=== PATIENT | female | born 1930 | race Caucasian/White ===

== ENCOUNTER 2017-03-12 10:55 | Inpatient (IN) | payer MEDICARE, OTHER ==
[~2017-03-12] VITALS: Ht 157.5 cm; Wt 47.6 kg
[2017-03-12] MEDS ORDERED: Morphine Sulfate 2mg/ml Inj IVP ONE (11:15)
[2017-03-12 11:42] VITALS: BP 146/97
[2017-03-12 11:47] LABS: MEAN CORPUSCULAR HEMOGLOBIN 28.8 PG (27.0-31.0); MEAN CORPUSCULAR HGB CONC 31.8 G/DL (32.0-36.0); MEAN CORPUSCULAR VOLUME 91 FL (80-99); MEAN PLATELET VOLUME 8.7 FL (6.5-10.1); PLATELET COUNT 138 K/UL (150-450); RED BLOOD COUNT 4.98 M/UL (4.20-5.40); RED CELL DISTRIBUTION WIDTH 12.8 % (11.6-14.8); WHITE BLOOD COUNT 9.4 K/UL (4.8-10.8)
[2017-03-12 12:02] LABS: ALANINE AMINOTRANSFERASE 10 U/L (3-33); ALBUMIN/GLOBULIN RATIO 1.3 (1.0-2.7); ANION GAP 17 (5-15); ASPARTATE AMINO TRANSFERASE 20 U/L (5-40); CALCIUM 9.8 mg/dL (8.6-10.2); CARBON DIOXIDE 24 mEQ/L (20-30); CHLORIDE 101 mEQ/L (98-107); CREATININE 0.7 mg/dL (0.5-0.9); HEMOLYSIS 7; SODIUM 142 mEQ/L (135-145); TOTAL PROTEIN 6.8 g/dL (6.6-8.7)
[2017-03-12 13:09] LABS: BAND NEUTROPHILS % (MANUAL) 0 % (0-8); BASOPHILS % (MANUAL) 0 % (0-2); EOSINOPHILS % (MANUAL) 0 % (0-3); LYMPHOCYTES % (MANUAL) 11 % (20-45); NEUTROPHILS % (MANUAL) 85 % (45-75); PLATELET ESTIMATE DECREASED; PLATELET MORPHOLOGY NORMAL; TOTAL CELLS COUNTED 100
[2017-03-12 13:12] LABS: PROTHROMBIN TIME 10.7 SEC (9.30-11.50)
--- NOTE | 2017-03-12 14:30 | Emergency Room Report ---
History of Present Illness General Chief Complaint: Multiple Trauma/Fall Source: EMS Present Illness HPI 87-year-old female presents to ED complaining of right hip pain status post fall. Daughter at bedside states patient a mechanical trip and fall in grocery store today. Denies hitting her head or LOC. Per EMS patient presents with shortening of the right leg with external rotation. Pain is a 5/10, sharp, nonradiating. Patient is unable to barely. No other aggravating or relieving factors. Denies any other associated symptoms Allergies: Coded Allergies: LORATADINE (Verified Allergy, Unknown, 03/12/17) Uncoded Allergies: SHELLFISH (Allergy, Unknown, 03/12/17) Patient History Past Medical History: none Past Surgical History: none Pertinent Family History: none Social History: Denies: alcohol use, drug use, smoking Now: No Immunizations: UTD Reviewed Nursing Documentation: PMH: Agreed, PSxH: Agreed Nursing Documentation-PMH Past Medical History: No History, Except For Review of Systems All Other Systems: negative except mentioned in HPI Physical Exam Vital Signs Date Time Temp Pulse Resp B/P Pulse Ox O2 Delivery O2 Flow Rate FiO2 03/12/17 10:50 97.9 100 14 145/83 96 Room Air Sp02 EP Interpretation: reviewed, normal General Appearance: alert, GCS 15, non-toxic, mild distress, thin Head: normocephalic, atraumatic Eyes: bilateral eye PERRL, bilateral eye normal inspection ENT: hearing grossly normal, normal pharynx, no angioedema, normal voice Neck: full range of motion, supple/symm/no masses Respiratory: chest non-tender, lungs clear, normal breath sounds, speaking full sentences Cardiovascular #1: regular rate, rhythm, no edema Cardiovascular #2: 2+ carotid (R), 2+ carotid (L), 2+ radial (R), 2+ radial (L) , 2+ dorsalis pedis (R), 2+ dorsalis pedis (L) Gastrointestinal: normal bowel sounds, non tender, soft, non-distended, no guarding, no rebound Rectal: deferred Genitourinary: normal inspection, no CVA tenderness Musculoskeletal: back normal, gait/station normal, normal range of motion, other - Shortening/external rotation of right leg Neurologic: alert, oriented x3, responsive, motor strength/tone normal, sensory intact, speech normal Psychiatric: judgement/insight normal, memory normal, mood/affect normal, no suicidal/homicidal ideation Reflexes: 3+ bicep (R), 3+ bicep (L), 3+ tricep (R), 3+ tricep (L), 3+ knee (R) , 3+ knee (L) Skin: normal color, no rash, warm/dry, well hydrated Lymphatic: no adenopathy Medical Decision Making Diagnostic Impression: Primary Impression: Right femoral fracture Qualified Codes: S72.001A - Fracture of unspecified part of neck of right femur, initial encounter for closed fracture ER Course Hospital Course 87-year-old female presents to ED with R hip pain and shortening s/p fall Differential diagnoses include: fracture, dislocation, contusion Clinical course Patient placed on stretcher. After initial history and physical I ordered labs , pain medication and imaging studies Labs reviewed- no leukocytosis noted, electrolytes okay, hemoglobin/hematocrit okay CT pelvis shows right femoral neck fracture, also noted on femur x-ray Ankle x-ray unremarkable Case discussed with Dr. Funk who agreed to consult on this case. Case discussed with Dr. Sadlivar who agreed to accept the patient to his service for further care and support i. I feel this is a highly complex case requiring extensive working including EKG/Rhythm strip, Xray/CT/US, Blood/urine lab work, repeat exams while in ED, and administration of strong opiates/narcotics for pain control, admission to hospital or close patient follow up. Diagnosis - R femoral fracture Admitted to floor in serious condition Labs Test 03/12/17 11:36 03/12/17 12:00 White Blood Count 9.4 K/UL (4.8-10.8) Red Blood Count 4.98 M/UL (4.20-5.40) Hemoglobin 14.4 G/DL (12.0-16.0) Hematocrit 45.2 % (37.0-47.0) Mean Corpuscular Volume 91 FL (80-99) Mean Corpuscular Hemoglobin 28.8 PG (27.0-31.0) Mean Corpuscular Hemoglobin Concent 31.8 G/DL (32.0-36.0) Red Cell Distribution Width 12.8 % (11.6-14.8) Platelet Count 138 K/UL (150-450) Mean Platelet Volume 8.7 FL (6.5-10.1) Neutrophils (%) (Auto) % (45.0-75.0) Lymphocytes (%) (Auto) % (20.0-45.0) Monocytes (%) (Auto) % (1.0-10.0) Eosinophils (%) (Auto) % (0.0-3.0) Basophils (%) (Auto) % (0.0-2.0) Differential Total Cells Counted 100 Neutrophils % (Manual) 85 % (45-75) Lymphocytes % (Manual) 11 % (20-45) Monocytes % (Manual) 4 % (1-10) Eosinophils % (Manual) 0 % (0-3) Basophils % (Manual) 0 % (0-2) Band Neutrophils 0 % (0-8) Platelet Estimate Decreased Platelet Morphology Normal Red Blood Cell Morphology Normal Sodium Level 142 mEQ/L (135-145) Potassium Level 4.0 mEQ/L (3.4-4.9) Chloride Level 101 mEQ/L (98-107) Carbon Dioxide Level 24 mEQ/L (20-30) Anion Gap 17 (5-15) Blood Urea Nitrogen 33 mg/dL (7-23) Creatinine 0.7 mg/dL (0.5-0.9) Estimat Glomerular Filtration Rate mL/min (>60) Glucose Level 130 mg/dL (74-106) Calcium Level 9.8 mg/dL (8.6-10.2) Total Bilirubin 0.5 mg/dL (0.0-1.2) Aspartate Amino Transf (AST/SGOT) 20 U/L (5-40) Alanine Aminotransferase (ALT/SGPT) 10 U/L (3-33) Alkaline Phosphatase 113 U/L (35-104) Total Protein 6.8 g/dL (6.6-8.7) Albumin 3.9 g/dL (3.5-5.2) Globulin 2.9 g/dL Albumin/Globulin Ratio 1.3 (1.0-2.7) Prothrombin Time 10.7 SEC (9.30-11.50) Prothromb Time International Ratio 1.0 (0.9-1.1) Activated Partial Thromboplast Time 22 SEC (23-33) Other X-Ray Diagnostic Results Other X-Ray Diagnostic Results #1: X-Ray ordered: R femur # of Views/Limited Vs Complete: 3 View Indication: Pain EP Interpretation: Yes Interpretation: no dislocation, no soft tissue swelling, other - R femur neck fx Impression: Other - femur neck fx Interpreting ER Provider: Sumanth Malone MD Other X-Ray Diagnostic Results #2: X-Ray ordered: R ankle # of Views/Limited Vs Complete: 3 View Indication: Pain EP Interpretation: Yes Interpretation: no dislocation, no soft tissue swelling, no fractures Impression: No acute disease Interpreting ER Provider: Sumanth Malone mD CT/MRI/US Diagnostic Results CT/MRI/US Diagnostic Results : Imaging Test Ordered: CT PElvis Impression R femur neck fx Last Vital Signs Date Time Temp Pulse Resp B/P Pulse Ox O2 Delivery O2 Flow Rate FiO2 03/12/17 11:42 97.9 82 19 146/97 100 Room Air Status: improved Disposition: ADMITTED INPATIENT Condition: Serious Referrals: NOT CHOSEN IVY/,REFERRING (PCP) SUMANTH MALONE M.D. Mar 12, 2017 14:30
[2017-03-12 14:39] VITALS: BP 141/92
[2017-03-12] MEDS ORDERED: ASPIR 8181 MG ORAL (15:14)
[2017-03-12 15:41] VITALS: BP 155/75
--- NOTE | 2017-03-12 15:44 | Consultation ---
Consult Note Assessment/Plan # [id number] RAGHAVENDRA RUDOLPH Mar 12, 2017 15:44
[2017-03-12] MEDS ORDERED: Norco 5mg/325mg tab ORAL PRN (17:15)
[2017-03-12 17:24] VITALS: BP 151/87
--- NOTE | 2017-03-12 18:45 | Consultation ---
DATE OF CONSULTATION: 03/12/2017 RENAL CONSULTATION REFERRING PHYSICIAN: Karla Saldivar M.D. HISTORY OF PRESENT ILLNESS: The patient is an 87-year-old female, who sustained a fall en route and complaining of right hip pain. The patient is alert and oriented and gave full history. She states that her allergies are to loratadine and shellfish. She denies having any previous medical conditions. She states that she has no trust to doctors and medical roper and she only takes a baby aspirin a day and has not seen any physician for quite some time. PAST HISTORY: Negative. PAST SURGICAL HISTORY: Negative. PHYSICAL EXAMINATION: VITAL SIGNS: Temperature 97.9 degrees, pulse rate 100, respiratory rate 15, and blood pressure 145/83. GENERAL: Face, slightly pale. The patient is thin. HEENT: Head is normocephalic. Sclerae are not icteric. NECK: Supple. LUNGS: No wheeze. HEART: Regular. ABDOMEN: Soft. EXTREMITIES: Lower extremities, no edema. Right hip area is swollen. DIAGNOSTIC DATA: The patient had a x-ray. It shows right femoral neck fracture. The other data suggests a hemoglobin of 14.4, white blood cells of 9.4. Normal chemistry, slightly increased BUN of 33, and normal coags. No UA is available. EKG is pending. IMPRESSION: This 87-year-old white female, who sustained a fall and fracture over the right hip area is being admitted for surgical intervention. Other condition appears to be mild dehydration. From renal standpoint of view, the patient is stable. PLAN: Plan is continue per PMD and surgical advice. According to how the patient's condition evolves, we will make the proper changes in our future management. Jorge Polanco M.D. DR: FREDY JOB#: [id number] CC:
[2017-03-12 20:00] VITALS: BP 147/83
[2017-03-12] MEDS: Docusate 100mg cap ORAL SCH (20:27)
[2017-03-12] MEDS: D5 1/2NS 1,000 ML IV SCH (20:28)
[2017-03-12 23:08] LABS: APPEARANCE,URINE CLEAR; KETONES,URINE 3+ (NEGATIVE); LEUKOCYTE ESTERASE ,URINE NEGATIVE (NEGATIVE); NITRITE,URINE NEGATIVE (NEGATIVE); PH,URINE 7 (4.5-8.0); PROTEIN,URINE NEGATIVE (NEGATIVE); UROBILINOGEN,URINE NORMAL MG/DL (0.0-1.0)
[2017-03-12 23:13] LABS: RBC,URINE 0-2 /HPF (0 - 2); SQUAMOUS EPITHELIAL CELL,UR OCCASIONAL /LPF (NONE/OCC); WBC,URINE 0-2 /HPF (0 - 2)
[2017-03-12] MEDS ORDERED: Morphine Sulfate 4mg/ml Inj IVP PRN (23:30)
[2017-03-13] VITALS (12 sets, daily range): BP systolic 123–166; BP diastolic 74–101
[2017-03-13 07:40] LABS: BASOPHILS % (AUTO) 0.5 % (0.0-2.0); EOSINOPHILS % (AUTO) 0.1 % (0.0-3.0); LYMPHOCYTES % (AUTO) 10.1 % (20.0-45.0); MEAN CORPUSCULAR HEMOGLOBIN 29.3 PG (27.0-31.0); MEAN CORPUSCULAR HGB CONC 32.3 G/DL (32.0-36.0); MEAN CORPUSCULAR VOLUME 91 FL (80-99); MEAN PLATELET VOLUME 9.7 FL (6.5-10.1); NEUTROPHILS % (AUTO) 79.4 % (45.0-75.0); PLATELET COUNT 135 K/UL (150-450); RED BLOOD COUNT 4.53 M/UL (4.20-5.40); RED CELL DISTRIBUTION WIDTH 12.4 % (11.6-14.8); WHITE BLOOD COUNT 9.7 K/UL (4.8-10.8)
[2017-03-13 08:13] LABS: TROPONIN I < 0.30 ng/mL (<=0.30)
[2017-03-13 08:37] LABS: ALANINE AMINOTRANSFERASE 11 U/L (3-33); ALBUMIN/GLOBULIN RATIO 1.7 (1.0-2.7); ANION GAP 12 (5-15); ASPARTATE AMINO TRANSFERASE 21 U/L (5-40); CALCIUM 9.5 mg/dL (8.6-10.2); CARBON DIOXIDE 27 mEQ/L (20-30); CHLORIDE 101 mEQ/L (98-107); CHOLESTEROL 146 mg/dL (< 200); CHOLESTEROL/HDL RATIO 2.1 (3.3-4.4); CREATININE 0.6 mg/dL (0.5-0.9); HEMOLYSIS 12; LDL CHOLESTEROL (CALC.) 63 mg/dL (60-99); PHOSPHORUS 2.7 mg/dL (2.5-4.8); POTASSIUM 3.7 mEQ/L (3.4-4.9); SODIUM 140 mEQ/L (135-145); TOTAL PROTEIN 6.3 g/dL (6.6-8.7); URIC ACID 4.1 mg/dL (3.0-7.5)
[2017-03-13 08:47] LABS: BILIRUBIN,DIRECT 0.2 mg/dL (0.1-0.3)
[2017-03-13 08:50] LABS: HEMOGLOBIN A1C 5.5 % (< 6.0)
[2017-03-13] MEDS: Docusate 100mg cap ORAL SCH ×3 (09:00→18:00)
--- NOTE | 2017-03-13 10:50 | General Progress Note ---
Assessment/Plan Status: stable Assessment/Plan This 87-year-old white female, who sustained a fall and fracture over the right hip area is being admitted for surgical intervention. Other condition appears to be mild dehydration. From renal standpoint of view, the patient is stable. Plan: Surgery 5 pm- NPO- Hydrate Subjective ROS Limited/Unobtainable: No Constitutional: Reports: malaise, other - no cp no sob Allergies: Coded Allergies: LORATADINE (Verified Allergy, Unknown, 03/12/17) SHELLFISH DERIVED (Unverified Adverse Reaction, Unknown, 03/12/17) Objective Last 24 Hour Vital Signs Date Time Temp Pulse Resp B/P Pulse Ox O2 Delivery O2 Flow Rate FiO2 03/13/17 08:00 96.8 80 20 131/75 99 Room Air 03/13/17 04:00 97.2 87 20 123/74 97 Room Air 03/13/17 00:00 97.7 89 20 150/78 97 Room Air 03/12/17 20:00 97.5 98 20 147/83 97 Room Air 03/12/17 17:24 97.3 90 15 151/87 98 Room Air 03/12/17 15:49 97.9 85 20 155/75 100 Room Air 03/12/17 15:48 97.9 03/12/17 15:41 85 20 155/75 100 Room Air 03/12/17 14:39 97.9 85 20 141/92 100 Room Air 03/12/17 11:42 97.9 82 19 146/97 100 Room Air 03/12/17 10:50 97.9 100 14 145/83 96 Room Air Intake and Output 03/12/17 03/13/17 19:00 07:00 Intake Total 200 ml 500 ml Output Total 550 ml 450 ml Balance -350 ml 50 ml Intake Oral 200 ml IV Total 500 ml Output Urine Total 550 ml 450 ml Laboratory Tests 03/12/17 11:36: White Blood Count 9.4, Red Blood Count 4.98, Hemoglobin 14.4, Hematocrit 45.2, Mean Corpuscular Volume 91, Mean Corpuscular Hemoglobin 28.8, Mean Corpuscular Hemoglobin Concent 31.8L, Red Cell Distribution Width 12.8, Platelet Count 138L , Mean Platelet Volume 8.7, Neutrophils (%) (Auto) , Lymphocytes (%) (Auto) , Monocytes (%) (Auto) , Eosinophils (%) (Auto) , Basophils (%) (Auto) , Differential Total Cells Counted 100, Neutrophils % (Manual) 85H, Lymphocytes % (Manual) 11L, Monocytes % (Manual) 4, Eosinophils % (Manual) 0, Basophils % ( Manual) 0, Band Neutrophils 0, Platelet Estimate DecreasedL, Platelet Morphology Normal, Red Blood Cell Morphology Normal, Sodium Level 142, Potassium Level 4.0, Chloride Level 101, Carbon Dioxide Level 24, Anion Gap 17H , Blood Urea Nitrogen 33H, Creatinine 0.7, Estimat Glomerular Filtration Rate , Glucose Level 130H, Calcium Level 9.8, Total Bilirubin 0.5, Aspartate Amino Transf (AST/SGOT) 20, Alanine Aminotransferase (ALT/SGPT) 10, Alkaline Phosphatase 113H, Total Protein 6.8, Albumin 3.9, Globulin 2.9, Albumin/ Globulin Ratio 1.3 03/12/17 12:00: Prothrombin Time 10.7, Prothromb Time International Ratio 1.0, Activated Partial Thromboplast Time 22L 03/12/17 23:00: Urine Color Pale yellow, Urine Appearance Clear, Urine pH 7, Urine Specific [place] 1.010, Urine Protein Negative, Urine Glucose (UA) Negative, Urine Ketones 3+H, Urine Occult Blood Negative, Urine Nitrite Negative, Urine Bilirubin Negative, Urine Urobilinogen Normal, Urine Leukocyte Esterase Negative , Urine RBC 0-2, Urine WBC 0-2, Urine Squamous Epithelial Cells Occasional, Urine Bacteria None 03/13/17 05:55: White Blood Count 9.7, Red Blood Count 4.53, Hemoglobin 13.3, Hematocrit 41.2, Mean Corpuscular Volume 91, Mean Corpuscular Hemoglobin 29.3, Mean Corpuscular Hemoglobin Concent 32.3, Red Cell Distribution Width 12.4, Platelet Count 135L, Mean Platelet Volume 9.7, Neutrophils (%) (Auto) 79.4H, Lymphocytes (%) (Auto) 10.1L, Monocytes (%) (Auto) 10.0, Eosinophils (%) (Auto) 0.1, Basophils (%) ( Auto) 0.5, Sodium Level 140, Potassium Level 3.7, Chloride Level 101, Carbon Dioxide Level 27, Anion Gap 12, Blood Urea Nitrogen 17, Creatinine 0.6, Estimat Glomerular Filtration Rate , Glucose Level 131H, Calcium Level 9.5, Total Bilirubin 1.3H, Aspartate Amino Transf (AST/SGOT) 21, Alanine Aminotransferase ( ALT/SGPT) 11, Alkaline Phosphatase 102, Total Protein 6.3L, Albumin 4.0, Globulin 2.3, Albumin/Globulin Ratio 1.7, Hemoglobin A1c 5.5, Uric Acid 4.1, Phosphorus Level 2.7, Magnesium Level 2.0, Direct Bilirubin 0.2, Total Creatine Kinase 159H, Troponin I < 0.30, Triglycerides Level 73, Cholesterol Level 146, LDL Cholesterol 63, HDL Cholesterol 68H, Cholesterol/HDL Ratio 2.1L, Thyroid Stimulating Hormone (TSH) 2.150 Height (Feet): 5 Height (Inches): 2.00 Weight (Pounds): 105 General Appearance: no apparent distress Neck: supple Cardiovascular: normal rate Respiratory/Chest: lungs clear Abdomen: soft RAGHAVENDRA RUDOLPH Mar 13, 2017 10:50
--- NOTE | 2017-03-13 12:00 | Diagnostic Imaging Report ---
Indication: Pain Comparison: None Findings: 2 views of the right ankle obtained. No acute fracture, malalignment, periostitis, or osteochondral defects are identified. Soft tissues are unremarkable. Bones are osteopenic. Impression: No acute findings on this examination
--- NOTE | 2017-03-13 12:01 | Diagnostic Imaging Report ---
Indication: Pain Findings: 2 views of the right femur were obtained. There is acute fracture of the right femoral neck with moderate displacement. The bones are osteopenic. Vascular calcifications are noted. Impression: Acute femoral neck fracture
[2017-03-13] MEDS: D5 1/2NS 1,000 ML IV SCH (13:08)
--- NOTE | 2017-03-13 13:16 | Consultation ---
DATE OF CONSULTATION: 03/12/2017 CHIEF COMPLAINT: Right hip pain. HISTORY OF PRESENT ILLNESS: This is a pleasant 87-year-old female, who sustained a mechanical fall. She was brought to the ER and was diagnosed with right femoral neck fracture. Orthopedic consultation obtained for further care and recommendation. PAST MEDICAL HISTORY: Reviewed from the intake chart. PAST SURGICAL HISTORY: Reviewed from the intake chart. MEDICATIONS: Reviewed from the intake chart. PHYSICAL EXAMINATION: GENERAL: The patient is alert and oriented. She is resting comfortably in bed. EXTREMITIES: She does have intermittent spasm of the left lower extremity and pain. She has short and internally rotated right leg. Posterior calf is soft. Dorsalis pedis +2. IMAGING STUDIES: Showed displaced femoral neck fracture DISCUSSION: At this point, she would need operative fixation with right hip hemiarthroplasty. Risks, limitations, expectations, and complications related to the procedure were discussed in detail. All questions were answered. We will proceed with surgery tomorrow given she was still pending medical clearance given her age. I dont think there should not be an issue to proceed with surgery tomorrow. She will be NPO after midnight for surgery. Jarrett Funk M.D. DR: MADISON JOB#: [id number] CC: DAHLIA
--- NOTE | 2017-03-13 14:01 | History and Physical Report ---
DATE OF ADMISSION: 03/12/2017 HISTORY OF PRESENT ILLNESS: The patient is admitted for right hip fracture. [place] the [place] her hand and . she slipped and fell and had sustained a right hip fracture. The patient complains of lots of pain in that right hip due to fracture. Otherwise, denies shortness of breath. Denies chest pain. No nausea, vomiting, or diarrhea. No fever or chills. Denies orthopnea. Denied any heart problems. She is status post TIA in the past, for which the patient takes baby aspirin. Otherwise, denies any other medical problems. She is otherwise very healthy, alert, and oriented. PAST MEDICAL HISTORY: Status post TIA. PAST SURGICAL HISTORY: Dilatation and curettage. MEDICATIONS: Aspirin 81 mg daily. ALLERGIES: To loratadine and shellfish. FAMILY HISTORY: Noncontributory. SOCIAL HISTORY: The patient denies history of drug or alcohol abuse. She has a remote history of smoking. REVIEW OF SYSTEMS: HEENT: Denies headaches. Respiratory: Denies shortness of breath. Denies cough. Cardiovascular: Denies chest pain or orthopnea. Gastrointestinal: Denies nausea, vomiting, or diarrhea. Extremities: She has right hip pain. Central Nervous System: Denies change in vision or speech pattern. Denies diplopia. Denies headache. Denies dizziness. PHYSICAL EXAMINATION: VITAL SIGNS: Temperature 97.9 degrees, pulse 85, and blood pressure 155/75 which is decreased to 131/75 this morning. HEENT: PERRLA. NECK: Supple. No lymphadenopathy. CHEST: Clear to auscultation. GASTROINTESTINAL: Soft, nontender, and nondistended. No organomegaly. EXTREMITIES: No edema. Moves all four extremities except range of motion on the right hip was decreased due to pain. NEUROLOGIC: Alert and oriented x3. LABORATORY AND DIAGNOSTIC DATA: WBC of 9.4, hemoglobin 14.4, and platelets 138,000. Sodium 142, potassium 4, BUN of 33, creatinine 0.7, and glucose of 130. Troponin is negative. ASSESSMENT AND PLAN: Right hip fracture. Dr. Funk is consulted for that. The patient also has azotemia for which has been consulted. The patient takes baby aspirin for transient ischemic attack in the past. Dr. Funk will be in charge of the ORIF of the right hip fracture. The patient does not have any cardiac risk factors at this point. Her history is only significant for in the past. Karla Saldivar M.D. DR: WISAM JOB#: [id number] CC:
[2017-03-13] MEDS ORDERED: Tranexamic Acid 500 MG in NS 55 ML IVPB ONE (15:00)
--- NOTE | 2017-03-13 15:17 | Diagnostic Imaging Report ---
Indication: Right hip fracture following trauma. Right hip pain Technique: Continuous helical transaxial imaging of the pelvis was obtained from the iliac crest to the pubic symphysis. Coronal 2-D reformats were also obtained. Study obtained in a Siemens sensation [address] Intravenous non-ionic contrast was administered. Total Dose length Product (DLP): [address] Dose Index Volume (CTDIvol): 10 mGy Comparison: None Findings: Examination demonstrates a acute fracture involving the right femoral neck. The fracture is comminuted and mildly angulated. A lesion is in varus. The bones are osteopenic. No other fractures are identified. Soft tissue swelling is noted. There is no large hematoma identified. Arteriovascular calcifications are present within the distal aorta and iliac/femoral arteries. Moderate stool retention noted within the colon. Uterus is present. Impression: Acute right femoral neck fracture. Osteoporosis Atherosclerotic vascular disease [facility] has communicated the preliminary results to the Emergency Department. Their findings are largely concordant with this report. The CT scanner at [facility] is accredited by the [employer] and the scans are performed using dose optimization techniques as appropriate to a performed exam including Automatic Exposure control.
--- NOTE | 2017-03-13 16:40 | Cardiology Report ---
APPROVED REPORT EKG Measurement Heart [id number] Sinus rhythm with occasional Left axis deviation Pulmonary disease pattern Septal infarct, age undetermined Abnormal ECG
[2017-03-13] MEDS ORDERED: Bacitracin 50000 Units Vial ONE (17:26)
[2017-03-13] MEDS ORDERED: Morphine Sulfate PF 0 ML ONE (17:29)
[2017-03-13] MEDS ORDERED: Bupivacaine 0.5% Inj 30 ml vial INJ ONE (17:30)
[2017-03-13] MEDS ORDERED: LR 1000ml 1,000 ML IVLG SCH (17:52)
--- NOTE | 2017-03-13 17:57 | Anethesia Preoperative Eval ---
Anesthesia Pre-op PMH/ROS General Date of Evaluation: Mar 13, 2017 Time of Evaluation: 17:56 Anesthesiologist: Sonya ASA Score: ASA 3 Mallampati Score Class I : Soft palate, uvula, fauces, pillars visible Class II: Soft palate, uvula, fauces visible Class III: Soft palate, base of uvula visible Class IV: Only hard plate visible Mallampati Classification: Class II Surgeon: Good Diagnosis: R Hip Pain Surgical Procedure: R Hip Hemiarthroplasty Anesthesia History: none Family History: no anesthesia problems Allergies: Coded Allergies: LORATADINE (Verified Allergy, Unknown, 03/12/17) SHELLFISH DERIVED (Unverified Adverse Reaction, Unknown, 03/12/17) Medications: see eMAR Past Medical History Cardiovascular: Reports: HTN Neurologic/Psychiatric: Reports: CVA Anesthesia Pre-op Phys. Exam Physician Exam Last Vital Signs Date Time Temp Pulse Resp B/P Pulse Ox O2 Delivery O2 Flow Rate FiO2 03/13/17 16:00 97.0 96 20 139/86 99 Room Air Constitutional: NAD Neurologic: CN 2-12 intact Cardiovascular: RRR Respiratory: CTA Gastrointestinal: S/NT/ND Airway Exam Mallampati Score: Class II MO: limited ROM: limited Teeth: intact Anesthesia Pre-op A/P Labs Hematology Test 03/13/17 05:55 White Blood Count 9.7 K/UL (4.8-10.8) Red Blood Count 4.53 M/UL (4.20-5.40) Hemoglobin 13.3 G/DL (12.0-16.0) Hematocrit 41.2 % (37.0-47.0) Mean Corpuscular Volume 91 FL (80-99) Mean Corpuscular Hemoglobin 29.3 PG (27.0-31.0) Mean Corpuscular Hemoglobin Concent 32.3 G/DL (32.0-36.0) Red Cell Distribution Width 12.4 % (11.6-14.8) Platelet Count 135 K/UL (150-450) L Mean Platelet Volume 9.7 FL (6.5-10.1) Neutrophils (%) (Auto) 79.4 % (45.0-75.0) H Lymphocytes (%) (Auto) 10.1 % (20.0-45.0) L Monocytes (%) (Auto) 10.0 % (1.0-10.0) Eosinophils (%) (Auto) 0.1 % (0.0-3.0) Basophils (%) (Auto) 0.5 % (0.0-2.0) Chemistry Test 03/13/17 05:55 Sodium Level 140 mEQ/L (135-145) Potassium Level 3.7 mEQ/L (3.4-4.9) Chloride Level 101 mEQ/L (98-107) Carbon Dioxide Level 27 mEQ/L (20-30) Anion Gap 12 (5-15) Blood Urea Nitrogen 17 mg/dL (7-23) Creatinine 0.6 mg/dL (0.5-0.9) Estimat Glomerular Filtration Rate mL/min (>60) Glucose Level 131 mg/dL (74-106) H Hemoglobin A1c 5.5 % (< 6.0) Uric Acid 4.1 mg/dL (3.0-7.5) Calcium Level 9.5 mg/dL (8.6-10.2) Phosphorus Level 2.7 mg/dL (2.5-4.8) Magnesium Level 2.0 mg/dL (1.7-2.5) Total Bilirubin 1.3 mg/dL (0.0-1.2) H Direct Bilirubin 0.2 mg/dL (0.1-0.3) Aspartate Amino Transf (AST/SGOT) 21 U/L (5-40) Alanine Aminotransferase (ALT/SGPT) 11 U/L (3-33) Alkaline Phosphatase 102 U/L (35-104) Total Creatine Kinase 159 U/L (26-140) H Troponin I < 0.30 ng/mL (<=0.30) Total Protein 6.3 g/dL (6.6-8.7) L Albumin 4.0 g/dL (3.5-5.2) Globulin 2.3 g/dL Albumin/Globulin Ratio 1.7 (1.0-2.7) Triglycerides Level 73 mg/dL (< 150) Cholesterol Level 146 mg/dL (< 200) LDL Cholesterol 63 mg/dL (60-99) HDL Cholesterol 68 mg/dL (> 60) H Cholesterol/HDL Ratio 2.1 (3.3-4.4) L Thyroid Stimulating Hormone (TSH) 2.150 uIU/mL (0.300-4.500) Risk Assessment & Plan Assessment: ASA 3 Plan: GA, Spinal, BIS Pre-Antibiotics Dru Grams Ancef IV Given Within 1 Hr of Incision: Yes Time Given: 18:16 Cory Hassan MD Mar 13, 2017 17:57
[2017-03-13] MEDS ORDERED: Midazolam 2mg/2ml Inj ONE (18:00)
[2017-03-13] MEDS ORDERED: Norco 5mg/325mg tab ORAL PRN ×2 (18:00→21:30)
[2017-03-13] MEDS ORDERED: Midazolam 2mg/2ml Inj IVP PRN (18:00)
[2017-03-13] MEDS ORDERED: Hydromorphone 0.5mg/0.5ml inj IVP PRN (18:00)
[2017-03-13] MEDS ORDERED: Norco 7.5mg/325mg tab ORAL PRN ×2 (18:00→21:30)
[2017-03-13] MEDS ORDERED: fentaNYL 100 mcg/2 mL IV PRN (18:00)
[2017-03-13] MEDS ORDERED: LR 1000ml ONE (18:00)
[2017-03-13] MEDS ORDERED: NS Irrig 1000ml ONE (18:00)
[2017-03-13] MEDS ORDERED: Atropine Inj 1mg/10ml Syr IV PRN (18:00)
[2017-03-13] MEDS ORDERED: Ketorolac 30mg Inj IV PRN (18:00)
[2017-03-13] MEDS ORDERED: Metoclopramide 10mg/2ml Inj IVP PRN (18:00)
[2017-03-13] MEDS ORDERED: Sterile Water Irrig 1000ml IRRIG ONE (18:00)
[2017-03-13] MEDS ORDERED: Ketorolac 60mg Inj IV PRN (18:00)
[2017-03-13] MEDS ORDERED: Oxycodone/Acetaminophen 5-325 ORAL PRN (18:00)
[2017-03-13] MEDS ORDERED: Meperidine 25mg/0.5ml Inj IV PRN (18:00)
[2017-03-13] MEDS ORDERED: LORazepam Inj 2mg/ml 1ml IV PRN (18:00)
[2017-03-13] MEDS ORDERED: DiphenhydrAMINE 50mg/ml Inj IVP PRN (18:00)
[2017-03-13] MEDS ORDERED: Lidocaine 1% Plain 30 ml INJ ONE (18:00)
--- NOTE | 2017-03-13 18:04 | Pre-Procedure Note/Attestation ---
Pre-Procedure Note/Attestation Complete Prior to Procedure Planned Procedure: right Procedure Narrative: hip hemiarthroplasty Indications for Procedure Pre-Operative Diagnosis: right femoral neck fracture Attestation I attest that I discussed the nature of the procedure; its benefits; risks and complications; and alternatives (and the risks and benefits of such alternatives ), prior to the procedure, with the patient (or the patient's legal sales representative gas service). I attest that, if there was a reasonable possibility of needing a blood transfusion, the patient (or the patient's legal sales representative gas service) was given the [facility] standardized written summary, pursuant to the Félix Lisa Blood Safety Act ([place] Health and Safety Code # 1645, as amended). I attest that I re-evaluated the patient just prior to the surgery and that there has been no change in the patient's H&P, except as documented below: BARBARA LIM Mar 13, 2017 18:04
--- NOTE | 2017-03-13 18:05 | Operative Note - PDOC ---
Operative Note Operative Note Pre-op Diagnosis: right femoral neck fracture Procedure: right hip alicia Post-op Diagnosis: same as pre-op Operative Findings: consistent w/pre-op dx studies Anesthesia: regional Specimen: yes Complications: none Condition: stable Estimated Blood Loss: minimal Implant(s) used?: Yes BARBARA LIM Mar 13, 2017 18:05
[2017-03-13] MEDS ORDERED: Morphine Sulfate 2mg/ml Inj IVP PRN ×3 (18:15→21:30)
--- NOTE | 2017-03-13 18:27 | Immediate Post-Op Evaluation ---
Immediate Post-Op Evalulation Immediate Post-Op Evalulation Procedure: R Hip Hemiarthroplasty Date of Evaluation: Mar 13, 2017 Time of Evaluation: 19:43 IV Fluids: 500 LR Blood Products: 0 Estimated Blood Loss: 50 Urinary Output: 150 Blood Pressure Systolic: 166 Blood Pressure Diastolic: 101 Pulse Rate: 97 Respiratory Rate: 16 O2 Sat by Pulse Oximetry: 100 Temperature (Fahrenheit): 98.4 Pain Score (1-10): 1 Nausea: No Vomiting: No Complications 0 Patient Status: awake, reacts, patent, none Hydration Status: adequate Dru Grams Ancef IV Given Within 1 Hr of Incision: Yes Time Given: 18:16 Cory Hassan MD Mar 13, 2017 18:27
[2017-03-13] MEDS ORDERED: Kenalog-40 1ml Vial ONE (18:42)
[2017-03-13] MEDS ORDERED: Morphine Sulfate PF 10 ML ONE (18:42)
[2017-03-13] MEDS ORDERED: Bupivacaine w/Epi 0.5% 30ml Vial INJ ONE (18:43)
[2017-03-13] MEDS ORDERED: Bupivacaine 0.25% Inj 30ml INJ ONE (18:43)
[2017-03-13] MEDS ORDERED: Duramorph PF 10mg/10ml amp IV ONE (19:15)
[2017-03-13] MEDS ORDERED: Milk of Magnesia 30ml Ud ORAL PRN (19:30)
--- NOTE | 2017-03-13 21:00 | Consultation ---
DATE OF CONSULTATION: 03/13/2017 HEMATOLOGY/ONCOLOGY CONSULTATION CONSULTING PHYSICIAN: Lázaro Anaya M.D. REFERRING PHYSICIAN: Karla Saldivar M.D. REASON FOR CONSULTATION: Evaluation of thrombocytopenia. IDENTIFICATION DATA: Dear Dr. Yariel Acosta, The patient is a pleasant 87-year-old female with past medical history significant for TIA at this time presents with right hip fracture after a fall in the supermarket. She slipped and fell, sustained a right hip fracture. She also is complaining of lots of pain. Otherwise denies any systemic symptoms. No chest pain. No shortness of breath. No nausea, no vomiting, no diarrhea. No orthopnea noted. She has a history of TIA in the past for which she was taking aspirin otherwise alert, and oriented. . PAST SURGICAL HISTORY: Dilatation and curettage. MEDICATIONS: Aspirin. ALLERGIES: Loratadine and shellfish. FAMILY HISTORY: Noncontributory. SOCIAL HISTORY: No alcohol, tobacco, or illicit drug use however does have a history of smoking. REVIEW OF SYSTEMS: Constitutional: No fever, chills, or night sweats. Skin: No rashes, lumps, or itching. HEENT: No headache, hearing, or vision changes. Breasts: No lumps, pain, or discharge. Pulmonary: No cough, sputum, or shortness of breath. Cardiovascular: No chest pain, tightness, or palpitations. Gastrointestinal: No nausea, vomiting, or diarrhea. . PHYSICAL EXAMINATION: GENERAL: The patient is in no acute distress. VITAL SIGNS: Temperature is 97 degrees Fahrenheit, pulse 96, respiratory rate 12, blood pressure 139/86, and pulse oximetry 98% on room air. PULMONARY: Decreased breath sounds. CARDIOVASCULAR: Regular rhythm. No S3 or S4. GASTROINTESTINAL: Abdomen is soft, nontender, and nondistended. EXTREMITIES: A 1+ edema. LABORATORY AND DIAGNOSTIC DATA: WBC of 9.4, hemoglobin 14.4, hematocrit 44, and platelet count 138,000. BUN of 33, creatinine 0.7. ASSESSMENT: 1. Hip fracture status post orthopedic hemiarthroplasty. 2. Thrombocytopenia potentially secondary to infection versus medications, closely monitor. Send off for hepatitis panel as well as HIV and ultrasound of the abdomen. 3. Osteoporosis. 4. Atherosclerotic vascular disease. 5. Transient ischemic attack history. 6. Azotemia. 7. Continue to closely monitor. 8. Greatly appreciate consultation. Lázaro Anaya M.D. DR: Julee JOB#: [id number] CC:
--- NOTE | 2017-03-13 22:15 | Operative Note - Dictated ---
DATE OF OPERATION: 03/13/2017 PREOPERATIVE DIAGNOSIS: Right displaced femoral neck fracture. POSTOP DIAGNOSIS: Right displaced femoral neck fracture. PROCEDURE: Right hip hemiarthroplasty. SURGEON: Jarrett Funk M.D. ANESTHESIA: Spinal. INDICATION FOR PROCEDURE: The patient is a 87-year-old female who sustained a mechanical fall, diagnosed with displaced femoral neck fracture, indicative of operative fixation of right hip hemiarthroplasty. Risks, limitations, expectations, and complications of the procedure discussed in detail. All questions were addressed. DESCRIPTION OF PROCEDURE: An informed consent was obtained, the patient was taken to the operating room and placed under lateral decubitus position. Right hip was prepped draped in a sterile manner. Ancef was administered. Time-out was performed. Posterolateral skin incision was then made. Fascia luciano was incised. Piriformis and short external rotator were Teed. Capsule was Teed tagged with #2 FiberWire, neck cut below the fracture site along the neck was performed. Femoral head was removed measured 48 mm. Sequential broaching up to a size 16.5 was done. A 16.5 stem with 0 head neck combo was selected. Hip was reduced. Soft tissue tension was good clinically ligaments seemed equal. Flexion was 120 degrees, 90 flexion, internal rotation was 60. External rotation was stable. At this point, the trial components were removed. Final implants were impacted into place solution containing 0.25% Marcaine with epinephrine, 40 mg of Kenalog, 5 mL of Duramorph, and 30 mg Toradol was injected. The capsule was reapproximated through 2 drills for the greater trocar. Fascia luciano was approximated with #1 Vicryl suture. Subcutaneous tissue approximated with 2-0 Vicryl suture and 3-0 Monocryl sutures. Dermabond and compression dressing was applied. The patient was awoken and taken to recovery room with stable vital signs. ESTIMATED BLOOD LOSS: 50 mL. COMPLICATIONS: None. SPECIMENS: Femoral head implants includes consensus 16.5 femoral stem 48.0 bipolar. Jarrett Funk M.D. DR: Robi JOB#: [id number] CC:
[2017-03-13] MEDS: D5 1/2NS w/KCl 20mEq 1,000 ML IV SCH (22:30)
[2017-03-14 00:11] VITALS: BP 133/88
[2017-03-14] MEDS: ceFAZolin sod 2 GM in D5W 110 ML IV SCH ×2 (02:00→11:54)
[2017-03-14 04:18] VITALS: BP 138/76
[2017-03-14 06:59] LABS: MEAN CORPUSCULAR HEMOGLOBIN 29.1 PG (27.0-31.0); MEAN CORPUSCULAR HGB CONC 31.9 G/DL (32.0-36.0); MEAN CORPUSCULAR VOLUME 91 FL (80-99); MEAN PLATELET VOLUME 10.1 FL (6.5-10.1); PLATELET COUNT 106 K/UL (150-450); RED BLOOD COUNT 4.22 M/UL (4.20-5.40); RED CELL DISTRIBUTION WIDTH 12.5 % (11.6-14.8); WHITE BLOOD COUNT 12.5 K/UL (4.8-10.8)
[2017-03-14 07:26] LABS: ANION GAP 7 (5-15); CALCIUM 9.1 mg/dL (8.6-10.2); CARBON DIOXIDE 29 mEQ/L (20-30); CHLORIDE 102 mEQ/L (98-107); CREATININE 0.6 mg/dL (0.5-0.9); HEMOLYSIS 5; POTASSIUM 4.4 mEQ/L (3.4-4.9); SODIUM 138 mEQ/L (135-145)
[2017-03-14 08:06] VITALS: BP 147/87
[2017-03-14] MEDS: Docusate 100mg cap ORAL SCH ×3 (08:18→17:26)
[2017-03-14] MEDS: celeBREX 200mg Cap **SURGERY PATIENTS ONLY ORAL SCH (08:19)
[2017-03-14 08:57] LABS: BAND NEUTROPHILS % (MANUAL) 1 % (0-8); BASOPHILS % (MANUAL) 0 % (0-2); EOSINOPHILS % (MANUAL) 0 % (0-3); LYMPHOCYTES % (MANUAL) 2 % (20-45); NEUTROPHILS % (MANUAL) 91 % (45-75); PLATELET ESTIMATE DECREASED; PLATELET MORPHOLOGY NORMAL; TOTAL CELLS COUNTED 100
[2017-03-14] MEDS ORDERED: Enoxaparin 30mg Inj SUBQ SCH (09:00)
[2017-03-14] MEDS ORDERED: D5 1/2NS 1000ml IV ONE (10:38)
[2017-03-14] MEDS ORDERED: 1/2 NS 1000ml IV ONE (10:38)
[2017-03-14] MEDS: D5 1/2NS w/KCl 20mEq 1,000 ML IV SCH (11:23)
[2017-03-14 12:00] VITALS: BP 109/64
--- NOTE | 2017-03-14 13:27 | 48 Hour Post Anesthesia Eval ---
Post Anesthesia Evaluation Procedure: R Hip Hemiarthroplasty Date of Evaluation: Mar 14, 2017 Time of Evaluation: 13:26 Blood Pressure Systolic: 138 0: 72 Pulse Rate: 68 Respiratory Rate: 20 Temperature (Fahrenheit): 97.5 O2 Sat by Pulse Oximetry: 99 Airway: patent Nausea: No Vomiting: No Pain Intensity: 2 Hydration Status: adequate Cardiopulmonary Status: stable Mental Status/LOC: patient returned to baseline Follow-up Care/Observations: n/a Post-Anesthesia Complications: none Follow-up care needed: N/A JOSEPH ATKINS M.D. Mar 14, 2017 13:27
--- NOTE | 2017-03-14 15:10 | Diagnostic Imaging Report ---
Indication: Postoperative right hip replacement Findings: Single AP view of the pelvis was performed. Bipolar right hip hemiarthroplasty demonstrated. The single projection obtained and based on this single view alignment and position of the prosthesis appears satisfactory. There is a Michael catheter present. Bones are osteopenic. Soft tissue air noted. Impression: Status post right hip hemiarthroplasty. No obvious complications based on this single view.
--- NOTE | 2017-03-14 15:31 | General Progress Note ---
Assessment/Plan Status: stable - post op Status Narrative no renal issues Assessment/Plan This 87-year-old white female, who sustained a fall and fracture over the right hip area is being admitted for surgical intervention. Other condition appears to be mild dehydration. From renal standpoint of view, the patient is stable. Plan: post op day 1 DC IV and DC carias Pain mgt Subjective ROS Limited/Unobtainable: No Allergies: Coded Allergies: LORATADINE (Verified Allergy, Unknown, 03/12/17) SHELLFISH DERIVED (Unverified Adverse Reaction, Unknown, 03/12/17) Objective Last 24 Hour Vital Signs Date Time Temp Pulse Resp B/P Pulse Ox O2 Delivery O2 Flow Rate FiO2 03/14/17 13:27 68 20 99 03/14/17 12:00 98.0 64 18 109/64 97 Room Air 03/14/17 08:06 98.2 94 16 147/87 98 Room Air 03/14/17 04:18 96.8 105 18 138/76 96 Room Air 03/14/17 00:11 97.9 105 19 133/88 96 Room Air 03/13/17 20:45 96.8 110 17 124/85 95 Nasal Cannula 3.0 03/13/17 20:30 98.4 102 17 125/77 100 Nasal Cannula 3.0 03/13/17 20:15 110 15 127/81 100 Simple Mask 6.0 03/13/17 20:00 108 20 132/86 100 Simple Mask 6.0 03/13/17 19:45 99 19 143/87 100 Simple Mask 6.0 03/13/17 19:40 97 20 149/89 100 Simple Mask 6.0 03/13/17 19:34 97 16 100 03/13/17 19:32 98.4 115 16 166/101 100 Simple Mask 6.0 03/13/17 16:00 97.0 96 20 139/86 99 Room Air Intake and Output 03/13/17 03/14/17 19:00 07:00 Intake Total 400 ml 600 ml Output Total 1400 ml 550 ml Balance -1000 ml 50 ml IV Total 400 ml 600 ml Output Urine Total 1400 ml 550 ml Laboratory Tests 03/14/17 05:30: White Blood Count 12.5H, Red Blood Count 4.22, Hemoglobin 12.3, Hematocrit 38.4 , Mean Corpuscular Volume 91, Mean Corpuscular Hemoglobin 29.1, Mean Corpuscular Hemoglobin Concent 31.9L, Red Cell Distribution Width 12.5, Platelet Count 106L, Mean Platelet Volume 10.1, Neutrophils (%) (Auto) , Lymphocytes (%) (Auto) , Monocytes (%) (Auto) , Eosinophils (%) (Auto) , Basophils (%) (Auto) , Differential Total Cells Counted 100, Neutrophils % ( Manual) 91H, Lymphocytes % (Manual) 2L, Monocytes % (Manual) 6, Eosinophils % ( Manual Current Medications Medications (Trade) Dose Ordered Sig/New Route PRN Reason Start Time Stop Time Status Last Admin Dose Admin Acetaminophen 650 mg 650 mg Q6H PRN ORAL Mild Pain/Temp > 100.5 03/12/17 17:15 04/11/17 17:14 Acetaminophen/ Hydrocodone Bitart (Adrian 5/325) 2 tab Q6H PRN ORAL Severe Pain (Pain Scale 7-10) 03/13/17 21:30 03/20/17 21:29 Acetaminophen/ Hydrocodone Bitart (Adrian 7.5/325) 1 ea Q4H PRN ORAL Moderate Pain (Pain Scale 4-6) 03/13/17 21:30 03/20/17 21:29 Celecoxib (CeleBREX) 200 mg DAILY ORAL 03/14/17 09:00 04/13/17 08:59 03/14/17 08:19 Dextrose/ Electrolytes (D5 0.45%NS W/ KCl 20mEq) 1,000 ml @ 75 mls/hr [id number] IV 03/13/17 22:30 04/12/17 22:29 03/14/17 11:23 Docusate Sodium (Colace) 100 mg THREE TIMES A DAY ORAL 03/14/17 09:00 04/13/17 08:59 03/14/17 12:15 Ferrous Sulfate (Feosol) 325 mg THREE TIMES A DAY ORAL 03/14/17 09:00 04/13/17 08:59 03/14/17 12:15 Magnesium Hydroxide (Mom) 30 ml DAILYPRN PRN ORAL Constipation 03/13/17 19:30 04/12/17 19:29 Morphine Sulfate (Morphine Sulfate) 1 mg Q3H PRN IVP Mild Pain (Pain Scale 1-3) 03/13/17 18:15 03/20/17 18:14 Morphine Sulfate (Morphine Sulfate) 2 mg Q3H PRN IVP Pain 4-10 03/13/17 21:30 03/20/17 21:29 Ondansetron HCl (Zofran) 4 mg Q6H PRN IVP Nausea & Vomiting 03/13/17 21:30 04/12/17 21:29 03/14/17 04:20 Pantoprazole (Protonix) 40 mg BID ORAL 03/12/17 18:00 04/11/17 17:59 03/14/17 08:17 Temazepam (Restoril) 7.5 mg DAILY PRN ORAL Insomnia 03/13/17 21:00 03/20/17 20:59 ) 0, Basophils % (Manual) 0, Band Neutrophils 1, Platelet Estimate DecreasedL, Platelet Morphology Normal, Red Blood Cell Morphology Normal, Sodium Level 138, Potassium Level 4.4, Chloride Level 102, Carbon Dioxide Level 29, Anion Gap 7, Blood Urea Nitrogen 13, Creatinine 0.6, Estimat Glomerular Filtration Rate , Glucose Level 211H, Calcium Level 9.1 Height (Feet): 5 Height (Inches): 2.00 Weight (Pounds): 105 General Appearance: no apparent distress Objective no change in PE RAGHAVENDRA RUDOLPH Mar 14, 2017 15:30
[2017-03-14 16:00] VITALS: BP 119/67
[2017-03-14 20:00] VITALS: BP 104/73
--- NOTE | 2017-03-14 20:05 | General Progress Note ---
Assessment/Plan Problem List: (1) Right femoral fracture ICD Codes: S72.91XA - Unspecified fracture of right femur, initial encounter for closed fracture SNOMED: [id number] Qualifiers: Qualified Codes: S72.001A - Fracture of unspecified part of neck of right femur, initial encounter for closed fracture Status: progressing Assessment/Plan repair of hip fracture needs snf for pt/ot Subjective ROS Limited/Unobtainable: Yes Allergies: Coded Allergies: LORATADINE (Verified Allergy, Unknown, 03/12/17) SHELLFISH DERIVED (Unverified Adverse Reaction, Unknown, 03/12/17) Objective Last 24 Hour Vital Signs Date Time Temp Pulse Resp B/P Pulse Ox O2 Delivery O2 Flow Rate FiO2 03/14/17 16:00 98.0 89 18 119/67 98 Room Air 03/14/17 13:27 68 20 99 03/14/17 12:00 98.0 64 18 109/64 97 Room Air 03/14/17 08:06 98.2 94 16 147/87 98 Room Air 03/14/17 04:18 96.8 105 18 138/76 96 Room Air 03/14/17 00:11 97.9 105 19 133/88 96 Room Air 03/13/17 20:45 96.8 110 17 124/85 95 Nasal Cannula 3.0 03/13/17 20:30 98.4 102 17 125/77 100 Nasal Cannula 3.0 03/13/17 20:15 110 15 127/81 100 Simple Mask 6.0 Intake and Output 03/13/17 03/14/17 19:00 07:00 Intake Total 400 ml 600 ml Output Total 1400 ml 550 ml Balance -1000 ml 50 ml IV Total 400 ml 600 ml Output Urine Total 1400 ml 550 ml Laboratory Tests 03/14/17 05:30: White Blood Count 12.5H, Red Blood Count 4.22, Hemoglobin 12.3, Hematocrit 38.4 , Mean Corpuscular Volume 91, Mean Corpuscular Hemoglobin 29.1, Mean Corpuscular Hemoglobin Concent 31.9L, Red Cell Distribution Width 12.5, Platelet Count 106L, Mean Platelet Volume 10.1, Neutrophils (%) (Auto) , Lymphocytes (%) (Auto) , Monocytes (%) (Auto) , Eosinophils (%) (Auto) , Basophils (%) (Auto) , Differential Total Cells Counted 100, Neutrophils % ( Manual) 91H, Lymphocytes % (Manual) 2L, Monocytes % (Manual) 6, Eosinophils % ( Manual) 0, Basophils % (Manual) 0, Band Neutrophils 1, Platelet Estimate DecreasedL, Platelet Morphology Normal, Red Blood Cell Morphology Normal, Sodium Level 138, Potassium Level 4.4, Chloride Level 102, Carbon Dioxide Level 29, Anion Gap 7, Blood Urea Nitrogen 13, Creatinine 0.6, Estimat Glomerular Filtration Rate , Glucose Level 211H, Calcium Level 9.1 Height (Feet): 5 Height (Inches): 2.00 Weight (Pounds): 105 EENT: PERRL/EOMI Respiratory/Chest: lungs clear Karla Saldivar MD Mar 14, 2017 20:05
--- NOTE | 2017-03-14 22:11 | General Progress Note ---
Assessment/Plan Assessment/Plan 1. Hip fracture status post orthopedic hemiarthroplasty. --->was done today 2. Thrombocytopenia potentially secondary to infection versus medications, closely monitor. Send off for hepatitis panel as well as HIV and ultrasound of the abdomen. ---> pending 3. Osteoporosis. 4. Atherosclerotic vascular disease. 5. Transient ischemic attack history. 6. Azotemia. 7. Continue to closely monitor. 8. Greatly appreciate consultation. Subjective Constitutional: Reports: no symptoms HEENT: Reports: no symptoms Cardiovascular: Reports: no symptoms Respiratory: Reports: no symptoms Gastrointestinal/Abdominal: Reports: nausea Genitourinary: Reports: no symptoms Neurologic/Psychiatric: Reports: no symptoms Endocrine: Reports: no symptoms Hematologic/Lymphatic: Reports: anemia Allergies: Coded Allergies: LORATADINE (Verified Allergy, Unknown, 03/12/17) SHELLFISH DERIVED (Unverified Adverse Reaction, Unknown, 03/12/17) Subjective s/p arthroplasty, c/o nausea Objective Last 24 Hour Vital Signs Date Time Temp Pulse Resp B/P Pulse Ox O2 Delivery O2 Flow Rate FiO2 03/14/17 20:00 97.9 98 19 104/73 97 Room Air 03/14/17 16:00 98.0 89 18 119/67 98 Room Air 03/14/17 13:27 68 20 99 03/14/17 12:00 98.0 64 18 109/64 97 Room Air 03/14/17 08:06 98.2 94 16 147/87 98 Room Air 03/14/17 04:18 96.8 105 18 138/76 96 Room Air 03/14/17 00:11 97.9 105 19 133/88 96 Room Air Intake and Output 03/13/17 03/14/17 19:00 07:00 Intake Total 400 ml 600 ml Output Total 1400 ml 550 ml Balance -1000 ml 50 ml IV Total 400 ml 600 ml Output Urine Total 1400 ml 550 ml Laboratory Tests 03/14/17 05:30: White Blood Count 12.5H, Red Blood Count 4.22, Hemoglobin 12.3, Hematocrit 38.4 , Mean Corpuscular Volume 91, Mean Corpuscular Hemoglobin 29.1, Mean Corpuscular Hemoglobin Concent 31.9L, Red Cell Distribution Width 12.5, Platelet Count 106L, Mean Platelet Volume 10.1, Neutrophils (%) (Auto) , Lymphocytes (%) (Auto) , Monocytes (%) (Auto) , Eosinophils (%) (Auto) , Basophils (%) (Auto) , Differential Total Cells Counted 100, Neutrophils % ( Manual) 91H, Lymphocytes % (Manual) 2L, Monocytes % (Manual) 6, Eosinophils % ( Manual) 0, Basophils % (Manual) 0, Band Neutrophils 1, Platelet Estimate DecreasedL, Platelet Morphology Normal, Red Blood Cell Morphology Normal, Sodium Level 138, Potassium Level 4.4, Chloride Level 102, Carbon Dioxide Level 29, Anion Gap 7, Blood Urea Nitrogen 13, Creatinine 0.6, Estimat Glomerular Filtration Rate , Glucose Level 211H, Calcium Level 9.1 Height (Feet): 5 Height (Inches): 2.00 Weight (Pounds): 105 General Appearance: moderate distress EENT: PERRL/EOMI Neck: normal alignment Cardiovascular: normal peripheral pulses Respiratory/Chest: lungs clear Edema: no edema noted Pedal (L), no edema noted Pedal (R) Neurologic: cycle repairer II-XII grossly normal Skin: warm/dry Lázaro Anaya Mar 14, 2017 22:11
[2017-03-15 00:20] VITALS: BP 112/69
[2017-03-15 04:00] VITALS: BP 111/62
[2017-03-15 06:33] LABS: MEAN CORPUSCULAR HEMOGLOBIN 29.3 PG (27.0-31.0); MEAN CORPUSCULAR HGB CONC 32.5 G/DL (32.0-36.0); MEAN CORPUSCULAR VOLUME 90 FL (80-99); MEAN PLATELET VOLUME 10.9 FL (6.5-10.1); PLATELET COUNT 104 K/UL (150-450); RED BLOOD COUNT 3.88 M/UL (4.20-5.40); RED CELL DISTRIBUTION WIDTH 12.6 % (11.6-14.8); WHITE BLOOD COUNT 10.9 K/UL (4.8-10.8)
[2017-03-15 08:00] VITALS: BP 154/82
[2017-03-15 08:10] LABS: BAND NEUTROPHILS % (MANUAL) 0 % (0-8); BASOPHILS % (MANUAL) 0 % (0-2); EOSINOPHILS % (MANUAL) 0 % (0-3); LYMPHOCYTES % (MANUAL) 3 % (20-45); NEUTROPHILS % (MANUAL) 92 % (45-75); PLATELET ESTIMATE DECREASED; PLATELET MORPHOLOGY NORMAL; TOTAL CELLS COUNTED 100
[2017-03-15 08:11] LABS: HYPOCHROMASIA 1+
--- NOTE | 2017-03-15 08:30 | General Progress Note ---
Assessment/Plan Status: stable Assessment/Plan This 87-year-old white female, who sustained a fall and fracture over the right hip area is being admitted for surgical intervention. Other condition appears to be mild dehydration. From renal standpoint of view, the patient is stable. Plan: post op day 2 DC IV and DC carias Pain mgt PO Vit D and one dose IV Iron Subjective ROS Limited/Unobtainable: No Constitutional: Reports: malaise Allergies: Coded Allergies: LORATADINE (Verified Allergy, Unknown, 03/12/17) SHELLFISH DERIVED (Unverified Adverse Reaction, Unknown, 03/12/17) Objective Last 24 Hour Vital Signs Date Time Temp Pulse Resp B/P Pulse Ox O2 Delivery O2 Flow Rate FiO2 03/15/17 04:00 97.8 83 18 111/62 95 Room Air 03/15/17 00:20 97.9 85 19 112/69 97 Room Air 03/14/17 20:00 97.9 98 19 104/73 97 Room Air 03/14/17 16:00 98.0 89 18 119/67 98 Room Air 03/14/17 13:27 68 20 99 03/14/17 12:00 98.0 64 18 109/64 97 Room Air Intake and Output 03/14/17 03/15/17 19:00 07:00 Intake Total 735 ml Output Total 400 ml Balance 335 ml Intake Oral 660 ml IV Total 75 ml Output Urine Total 400 ml # Voids 2 Laboratory Tests 03/15/17 05:05: White Blood Count 10.9H, Red Blood Count 3.88L, Hemoglobin 11.4L, Hematocrit 35.0L, Mean Corpuscular Volume 90, Mean Corpuscular Hemoglobin 29.3, Mean Corpuscular Hemoglobin Concent 32.5, Red Cell Distribution Width 12.6, Platelet Count 104L, Mean Platelet Volume 10.9H, Neutrophils (%) (Auto) , Lymphocytes (% ) (Auto) , Monocytes (%) (Auto) , Eosinophils (%) (Auto) , Basophils (%) (Auto) , Differential Total Cells Counted 100, Neutrophils % (Manual) 92H, Lymphocytes % (Manual) 3L, Monocytes % (Manual) 5, Eosinophils % (Manual) 0, Basophils % ( Manual) 0, Band Neutrophils 0, Platelet Estimate DecreasedL, Platelet Morphology Normal, Hypochromasia 1+, Hepatitis A IgM Antibody [Pending], Hepatitis B Surface Antigen [Pending], Hepatitis B Core IgM Antibody [Pending], Hepatitis C Antibody [Pending], HIV (1&2) Antibody Rapid Negative Height (Feet): 5 Height (Inches): 2.00 Weight (Pounds): 105 General Appearance: no apparent distress Objective no change in PE RAGHAVENDRA RUDOLPH Mar 15, 2017 08:30
[2017-03-15] MEDS ORDERED: Vitamin D 50,000 units cap ORAL SCH (10:00)
[2017-03-15] MEDS ORDERED: Iron Sucrose 200 MG in NS 110 ML IVPB ONE (10:00)
[2017-03-15] MEDS: Docusate 100mg cap ORAL SCH (10:38)
[2017-03-15] MEDS: celeBREX 200mg Cap **SURGERY PATIENTS ONLY ORAL SCH (10:39)
[2017-03-15 11:52] VITALS: BP 122/75
[2017-03-15] MEDS ORDERED: Tubing IV Secondary IV ONE (13:14)
[2017-03-15] MEDS ORDERED: NS 275ml ONE (13:14)
--- NOTE | 2017-03-15 17:01 | General Progress Note ---
Assessment/Plan Assessment/Plan 1. Hip fracture status post orthopedic hemiarthroplasty. --->was done today 2. Thrombocytopenia potentially secondary to infection versus medications, closely monitor. Send off for hepatitis panel as well as HIV and ultrasound of the abdomen. ---> US cancelled 3. Osteoporosis. 4. Atherosclerotic vascular disease. 5. Transient ischemic attack history. 6. Azotemia. 7. Continue to closely monitor. 8. Greatly appreciate consultation. Subjective Constitutional: Reports: no symptoms HEENT: Reports: no symptoms Cardiovascular: Reports: no symptoms Respiratory: Reports: no symptoms Gastrointestinal/Abdominal: Reports: no symptoms Genitourinary: Reports: no symptoms Neurologic/Psychiatric: Reports: no symptoms Endocrine: Reports: no symptoms Hematologic/Lymphatic: Reports: no symptoms Allergies: Coded Allergies: LORATADINE (Verified Allergy, Unknown, 03/12/17) SHELLFISH DERIVED (Unverified Adverse Reaction, Unknown, 03/12/17) Subjective clear for dc Objective Last 24 Hour Vital Signs Date Time Temp Pulse Resp B/P Pulse Ox O2 Delivery O2 Flow Rate FiO2 03/15/17 11:52 97.5 83 17 122/75 98 Room Air 03/15/17 08:00 97.5 87 20 154/82 97 Room Air 03/15/17 04:00 97.8 83 18 111/62 95 Room Air 03/15/17 00:20 97.9 85 19 112/69 97 Room Air 03/14/17 20:00 97.9 98 19 104/73 97 Room Air Intake and Output 03/14/17 03/15/17 19:00 07:00 Intake Total 735 ml Output Total 400 ml Balance 335 ml Intake Oral 660 ml IV Total 75 ml Output Urine Total 400 ml # Voids 2 Laboratory Tests 03/15/17 05:05: White Blood Count 10.9H, Red Blood Count 3.88L, Hemoglobin 11.4L, Hematocrit 35.0L, Mean Corpuscular Volume 90, Mean Corpuscular Hemoglobin 29.3, Mean Corpuscular Hemoglobin Concent 32.5, Red Cell Distribution Width 12.6, Platelet Count 104L, Mean Platelet Volume 10.9H, Neutrophils (%) (Auto) , Lymphocytes (% ) (Auto) , Monocytes (%) (Auto) , Eosinophils (%) (Auto) , Basophils (%) (Auto) , Differential Total Cells Counted 100, Neutrophils % (Manual) 92H, Lymphocytes % (Manual) 3L, Monocytes % (Manual) 5, Eosinophils % (Manual) 0, Basophils % ( Manual) 0, Band Neutrophils 0, Platelet Estimate DecreasedL, Platelet Morphology Normal, Hypochromasia 1+, Hepatitis A IgM Antibody [Pending], Hepatitis B Surface Antigen [Pending], Hepatitis B Core IgM Antibody [Pending], Hepatitis C Antibody [Pending], HIV (1&2) Antibody Rapid Negative Height (Feet): 5 Height (Inches): 2.00 Weight (Pounds): 105 General Appearance: no apparent distress EENT: normal ENT inspection Neck: normal alignment Cardiovascular: normal peripheral pulses Respiratory/Chest: chest wall non-tender Edema: no edema noted Pedal (L), no edema noted Pedal (R) Neurologic: surgical assistant certified II-XII grossly normal Lázaro Anaya Mar 15, 2017 17:01
--- NOTE | 2017-03-18 09:18 | Discharge Summary ---
Discharge Summary Hospital Course Date of Admission Mar 12, 2017 at 13:26 Date of Discharge Mar 15, 2017 at 13:15 Admitting Diagnosis R HIP FX HPI Debbie Prakash is a 87 year old female who was admitted on Mar 12, 2017 at 13:26 for Right Hip Facture Hospital Course dc summary#[id number] Discharge Condition Upon Discharge: stable Discharge Disposition Patient was discharged to SNF/Subacute Facility(03) Discharge Diagnoses: Discharge Instructions Discharge Instructions Special Instructions I have been assigned to complete a D/C Summary on this account. I was not involved in the patient management Ciara Hernandez NP (Vanchtein) Mar 18, 2017 09:18
--- NOTE | 2017-03-19 08:32 | Discharge Summary 2 SIG ---
DATE OF ADMISSION: 03/12/2017 DATE OF DISCHARGE: 03/15/2017 The patient was admitted under Dr. Saldivar. REASON FOR ADMISSION: This is an 87 years old female, came to emergency room after she sustained mechanical fall at the grocery store and fell. The patient was unable to bear any weight. The patient reported pain 5/10, sharp, and nonradiating in the right leg. The patient denied hitting head or loss of consciousness. No blackout. Workup in the emergency room revealed no leukocytosis. Stable hemoglobin and hematocrit. The patient was afebrile. Electrolytes were stable. Troponin was negative. CT of the pelvis revealed right femoral neck fracture. Femur x-ray revealed right femoral neck fracture with moderate displacement. Ankle x-ray was unremarkable. The patient was admitted for further management. ADMITTING DIAGNOSES: 1. Status post mechanical fall. 2. Right hip pain. 3. Right femoral neck displaced fracture. HOSPITAL STAY: The patient was admitted. The patient was started on IV fluids. Surgery consult was requested. The patient was scheduled for surgery and subsequently on 03/13/2017, undergone right hip hemiarthroplasty. Course of recovery was uneventful. The patient was able to ambulate with physical and occupational therapy. Pain management was addressed. Bowel regimen instituted. DVT prophylaxis and GI prophylaxis provided. The patient should follow up with the Physical and Occupational Therapy. The patient was stable for discharge to SNF for PT/OT. Welding Equipment Repairer Supervisor had seen the patient secondary to thrombocytopenia. According to revenue coordinator, thrombocytopenia was likely secondary to medication versus infection course. Monitor closely. The patient was stable for discharge. DISCHARGE DIAGNOSES: 1. Status post mechanical fall. 2. Right hip pain. 3. Acute right femoral neck displaced fracture. 4. Status post right hip hemiarthroplasty on 03/13/2017. 5. Mild dehydration. 6. Thrombocytopenia. DISCHARGE MEDICATIONS: See medication reconciliation list. DISCHARGE INSTRUCTIONS: The patient is discharged to detention facility for PT and OT service. Karal Saldivar M.D. I have been assigned to dictate discharge summary on this account and I was not involved in the patient's management. Ciara Hernandez N.P. (vanchtein) DR: HORACIO JOB#: [id number] CC:
== END 2017-03-15 13:15 | DRG 470 ==
LOC: EDBD 10:55 → EMR 11:27 → 4E 13:26 → EDBEDREQ 16:30 → 4E 18:26 → 3E 03-13 20:59
PROC: 0SRR0JA Replacement of Right Hip Joint, Femoral Surface with Synthetic Substitute, Uncemented, Open Approach (ICD-10-PCS; principal; 2017-03-13 16:00)
DX: S72.001A Fracture of unspecified part of neck of right femur, initial encounter for closed fracture (principal); D69.6 Thrombocytopenia, unspecified; E86.0 Dehydration; M81.0 Age-related osteoporosis without current pathological fracture; W19.XXXA Unspecified fall, initial encounter; Y92.512 Supermarket, store or market as the place of occurrence of the external cause; Z88.8 Allergy status to other drugs, medicaments and biological substances; I25.10 Atherosclerotic heart disease of native coronary artery without angina pectoris; Z86.73 Personal history of transient ischemic attack (TIA), and cerebral infarction without residual deficits
CPT/HCPCS: 36415; 72170; 72192; 80048; 80053; 80061; 81001; 82248; 82550; 83036; 83735; 84100; 84443; 84484; 84550; 85007; 85025; 85610; 85730; 86703; 86705; 86709; 86803; 86850; 86900; 86901; 87081; 87340; 93005; 94003; 94150; J2250; J2405